=== PATIENT | male | born 1955 | race Caucasian/White ===

== ENCOUNTER 2023-05-13 16:37 | Outpatient (CLI) | payer OTHER, SELFPAY ==
--- NOTE | 2023-05-13 16:30 | RT.EKG_ITS ---
APPROVED REPORT Exam: Resting ECG Reason for Exam: chest discomfort Patient Location: O HR:85 bpm ECG Measurements Heart Rate 85 AXIS AK 173 P 19 QRSd 108 QRS 8 QT 363 T 27 QTc 432 Conclusion Sinus rhythm...normal P axis, V-rate 50- 99
== END 2023-05-13 16:38 | disposition home or self-care (01) ==
LOC: DI.CM 16:38
PROVIDERS: Visit Provider Nurse Practitioner Family
DX: R07.89 Other chest pain (principal)
CPT/HCPCS: 93010

== ENCOUNTER 2023-05-13 21:47 | Outpatient (REF) | payer OTHER, SELFPAY ==
[2023-05-13 21:34] LABS: Abs Immature Grans 0.04 10^3/uL (0.0-0.06); Absolute Basophil Count 0.03 10^3/uL (0.0-0.2); Absolute Lymphocyte Count 0.25 10^3/uL (1.2-3.4); Absolute Monocyte Count 0.59 10^3/uL (0.1-0.8); Basophils % 0.3; HCT 43.8 % (40.0-50.0); HGB 15.7 g/dL (13.5-17.5); Immature Grans % 0.4; Lymphocytes % 2.2; MCHC 35.8 % (32.0-36.0); MCV 86 fL (80-95); MPV 12.2 fL (8.0-11.0); Monocytes % 5.3; Neutrophils % 91.8; RBC 5.07 10^6/uL (4.36-5.78); RDW 12.4 % (11.8-14.1); RDW-SD 38.6 fL; WBC 11.21 10^3/uL (4.4-10.8)
[2023-05-13 21:35] LABS: ALT 35 U/L (16-63); AST 37 U/L (15-37); Albumin 3.8 g/dL (3.4-5.0); Alkaline Phosphatase 72 U/L (46-116); Anion Gap 11.8 mmol/L (3-11); BUN 28 mg/dL (7-18); Bilirubin, Total 1.2 mg/dL (0.2-1.0); CO2 25.2 mmol/L (21.0-32.0); Calcium 8.8 mg/dL (8.5-10.1); Chloride 103 mmol/L (98-107); Estimated GFR 81.98 (mL/min/1.73m2); Glucose 120 mg/dL (74-106); Lipase 17 U/L (16-77); Potassium 3.7 mmol/L (3.5-5.1); Sodium 140 mmol/L (136-145); Total Protein 6.8 g/dL (6.4-8.2)
[2023-05-13 22:13] LABS: Absolute Neutrophil Count 10.29 10^3/uL (1.2-6.7)
[2023-05-13 22:14] LABS: Platelet Count 69 10^3/uL (130-400)
== END 2023-05-13 21:48 | disposition home or self-care (01) ==
LOC: LBN 21:47
PROVIDERS: Visit Provider Nurse Practitioner Family
DX: R11.2 Nausea with vomiting, unspecified (principal)
CPT/HCPCS: 80053; 83690; 85025